=== PATIENT | male | born 1980 | race Caucasian/White ===

== ENCOUNTER → 2020-01-15 | Outpatient (CLI) | payer OTHER ==
[~2020-01-15] MED LIST: MESA1.2T PO; MULT-246 PO; OXYC1TAB15 PO
== END | disposition home or self-care (01) ==
LOC: LAB 09:05
PROVIDERS: ATTEND Registered Nurse
DX: Z11.59 Encounter for screening for other viral diseases (principal)
CPT/HCPCS: C9803; U0003; 87426

== ENCOUNTER → 2020-01-19 | Day surgery (SDC) | payer OTHER ==
[~2020-01-19] MED LIST changes: +IPRATRPIUM/ALBUTEROL 0.5/2.5MG 3 ML NEBU. NEB PRN; +IV RINGERS SOLUTION,LACTATED 1,000 ML IV SCH; +ONDANSETRON PF 4 MG/2 ML VIAL. IV PRN; +PROPOFOL 10,000 MCG/ML (20ML) VIAL IV ONE
[2020-01-19 08:50] VITALS: BP 116/75
--- NOTE | 2020-01-20 17:08 | PATHOLOGY ---
[facility] Accession Number: [id number] . 01 Material submitted: . colon - LEFT SIDE COLON BIOPSY. Modifiers: left . 01 Clinical history: . Diarrhea, blood in stools, UC . 02 Diagnosis: Colonic mucosa, left-sided colon biopsies: - Segments of colonic mucosa showing no evidence of active chronic colitis, dysplasia, or malignancy. 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 02 Comment: Sections of the left-sided colon biopsies reveal multiple segments of colonic mucosa containing several mucosal-associated lymphoid aggregates. There is no evidence of an active chronic destructive colitis. There is no dysplasia or evidence of malignancy. (JPM:[employer] chemist; 01/20/2020) . 02 Electronically signed: . Mert Schuler MD, Pathologist NPI- [id number] . 01 Gross description: . The specimen is received in formalin, labeled "Pablo Alberto, left-sided colon biopsy". Received are six segments of pale gilbert soft tissue ranging in size from 0.3 to 0.6 cm in maximum dimensions. The specimen is submitted entirely in cassette A1. (CAA; 01/19/2020) QA/QAC 01/19/2020 1711 Local . 02 Pathologist provided ICD-10: K52.9 . 02 CPT . [id number] Specimen Comment: A courtesy copy of this report has been sent to [phone], [phone] Specimen Comment: [id number] Specimen Comment: Report sent to / DR REYNA Performed at: [address], [place], [place] [id number] MD Johnny Orta MD Phone: [phone] Performed at: 02 [facility] [address] [place] [id number] MD Mert Schuler MD Phone: [phone]
== END ==
LOC: SURG 06:46
PROVIDERS: ATTEND Emergency Medicine
DX: K51.50 Left sided colitis without complications (principal); K64.8 Other hemorrhoids; I10 Essential (primary) hypertension; E78.00 Pure hypercholesterolemia, unspecified; G89.29 Other chronic pain; K76.0 Fatty (change of) liver, not elsewhere classified; F17.210 Nicotine dependence, cigarettes, uncomplicated; Z79.899 Other long term (current) drug therapy; Z98.890 Other specified postprocedural states
CPT/HCPCS: 45380; 88305; J2704; J7120

== ENCOUNTER → 2020-10-07 | Outpatient (CLI) | payer OTHER ==
[2020-01-19 08:50] VITALS: BP 116/75
[~2020-10-07] MED LIST changes: -IPRATRPIUM/ALBUTEROL 0.5/2.5MG 3 ML NEBU. NEB PRN; -IV RINGERS SOLUTION,LACTATED 1,000 ML IV SCH; -ONDANSETRON PF 4 MG/2 ML VIAL. IV PRN; -PROPOFOL 10,000 MCG/ML (20ML) VIAL IV ONE
--- NOTE | 2020-10-07 09:48 | RAD ---
INDICATION : Reason: FATTY LIVER / Spl. Instructions: / History: COMPARISON: None TECHNIQUE: Multiple ultrasound images obtained through the abdomen in grayscale and color. FINDINGS: Liver: Echogenic. Enlarged. Large portions of the liver not seen secondary to poor beam penetration. Gallbladder: No wall thickening or stones. IVC: Partially distended at level of liver. Common Bile Duct: Not dilated. Pancreas: Overlying structures obscure. Right Kidney: No hydronephrosis. IMPRESSION: * Liver is echogenic which can be seen with fatty infiltration. Electronically signed by: Elliott Valdivia MD (10/07/2020 9:45 AM) [id number]
== END ==
LOC: US 08:36
PROVIDERS: ATTEND Family Medicine
DX: K76.0 Fatty (change of) liver, not elsewhere classified (principal)
CPT/HCPCS: 76705

== ENCOUNTER → 2021-12-07 | Day surgery (SDC) | payer OTHER ==
[2021-12-07 11:31] VITALS: BP 144/106
--- NOTE | 2021-12-07 12:40 | NUR ---
[employer] representative met with patient and placed Nexwave IFC unit to LLQ of abdomen x 20 minutes. Patient stated he had good relief and would like to proceed with attaining unit.
[2021-12-07 12:54] LABS: BARBITURATES NEG (NEG); BENZODIAZEPINES NEG (NEG); CANNABINOIDS NEG (NEG); COCAINE NEG (NEG); METHADONE NEG (NEG); OPIATES NEG (NEG); PHENCYCLIDINE NEG (NEG)
[2021-12-07 13:08] LABS: AMPHETAMINE/METHAMPHETAMINE NEG (NEG)
== END | disposition home or self-care (01) ==
LOC: SURG 11:25
PROVIDERS: ATTEND Anesthesiology
DX: M47.816 Spondylosis without myelopathy or radiculopathy, lumbar region (principal); I10 Essential (primary) hypertension; K44.9 Diaphragmatic hernia without obstruction or gangrene; R10.9 Unspecified abdominal pain; K51.90 Ulcerative colitis, unspecified, without complications; M79.18 Myalgia, other site; Z98.890 Other specified postprocedural states; Z79.899 Other long term (current) drug therapy
CPT/HCPCS: 36415; 80307; 99204; G0463